=== PATIENT | female | born 1960 | race Caucasian/White ===

== ENCOUNTER → 2019-10-17 12:39 | Outpatient (BNVA) | payer OTHER, SELFPAY | PROVIDERS: Visit Provider Nurse Practitioner Family | DX: M79.671 Pain in right foot (principal); S90.31XA Contusion of right foot, initial encounter; W16.322A Fall into other water striking bottom causing other injury, initial encounter; Z68.33 Body mass index [BMI] 33.0-33.9, adult | CPT/HCPCS: 73630 ==